=== PATIENT | male | born 1995 | race African-American/Black ===

== ENCOUNTER 2017-04-22 15:38 | Inpatient (IN) | payer SELFPAY ==
[~2017-04-22] VITALS: Ht 177.8 cm; Wt 68.5 kg
[2017-04-22 15:42] VITALS: BP 158/101; PULSE 144; RESP 26; TEMP 98.8; O2SAT 99
[2017-04-22] MEDS ORDERED: SODIUM CHLOR 0.9% 1000 ML INJ 1,000 ML IV ONE (16:25)
--- NOTE | 2017-04-22 16:28 | PD ---
HPI Chief Complaint: Flank/Kidney Pain Time Seen by Provider: 16:25 Travel History International Travel<30 days: No Contact w/Intl Traveler<30days: No Traveled to known affect area: No History of Present Illness HPI 21-year-old male presents for evaluation of right flank pain, nausea and vomiting. Symptoms started this morning. He reports sharp pain in his right flank which is constant, associated with multiple episodes of nonbloody emesis. He reports a history of kidney stone in the past requiring lithotripsy and this feels similar. Denies dysuria, hematuria, testicular or scrotal pain, chest pain or shortness of breath, fevers. He reports that he is from [place], currently here on vacation. He is no other complaints at this time. PENDING SALE TO [facility] Social History Alcohol Use: No Tobacco Use: No Allergies-Medications (Allergen,Severity, Reaction): Coded Allergies: No Known Allergies (Verified Allergy, Unknown, 04/22/17) Reported Meds & Prescriptions Reported Meds & Active Scripts Active No Active Prescriptions or Reported Medications Review of Systems Except as stated in HPI: all other systems reviewed are Neg Physical Exam Narrative GENERAL: Well-developed well-nourished male who is actively vomiting. He appears uncomfortable. SKIN: Warm and dry. HEAD: Atraumatic. Normocephalic. EYES: Pupils equal and round. No scleral icterus. No injection or drainage. ENT: No nasal bleeding or discharge. Mucous membranes pink and moist. NECK: Trachea midline. No JVD. CARDIOVASCULAR: Regular rate and rhythm. No murmur appreciated. RESPIRATORY: No accessory muscle use. Clear to auscultation. Breath sounds equal bilaterally. GASTROINTESTINAL: Abdomen soft, mild generalized tenderness to palpation. Right CVA tenderness is present. MUSCULOSKELETAL: No obvious deformities. No clubbing. No cyanosis. No edema. NEUROLOGICAL: Awake and alert. No obvious cranial nerve deficits. Motor grossly within normal limits. Normal speech. PSYCHIATRIC: Appropriate mood and affect; insight and judgment normal. Data Data Last Documented VS Vital Signs Date Time Temp Pulse Resp B/P (MAP) Pulse Ox O2 Delivery O2 Flow Rate FiO2 04/22/17 16:52 62 16 99 04/22/17 15:42 98.8 Orders Orders Urinalysis - C+S If Indicated (04/22/17 15:50) Complete Blood Count With Diff (04/22/17 16:25) Comprehensive Metabolic Panel (04/22/17 16:25) Ct Abd/Pel W/O Iv Contrast (04/22/17 16:25) Iv Access Insert/Monitor (04/22/17 16:25) Ketorolac Inj (Toradol Inj) (04/22/17 16:30) Morphine Inj (Morphine Inj) (04/22/17 16:30) Ondansetron Inj (Zofran Inj) (04/22/17 16:30) Sodium Chlor 0.9% 1000 Ml Inj (Ns 1000 M (04/22/17 16:25) Ecg Monitoring (04/22/17 16:25) Lipase (04/22/17 16:25) Urine Culture (04/22/17 15:50) Ceftriaxone Inj (Rocephin Inj) (04/22/17 17:45) Admit Order (Ed Use Only) (04/22/17 18:29) Labs Laboratory Tests Test 04/22/17 15:50 04/22/17 16:29 Urine Color YELLOW Urine Turbidity CLOUDY Urine pH 8.0 Urine Specific [place] 1.017 Urine Protein 100 mg/dL Urine Glucose (UA) NEG mg/dL Urine Ketones NEG mg/dL Urine Occult Blood MOD Urine Nitrite NEG Urine Bilirubin NEG Urine Urobilinogen LESS THAN 2.0 MG/DL Urine Leukocyte Esterase LARGE Urine RBC /hpf Urine WBC 91 /hpf Urine Amorphous Sediment RARE Microscopic Urinalysis Comment CULTURE INDICATED White Blood Count 19.7 TH/MM3 Red Blood Count 5.63 MIL/MM3 Hemoglobin 17.3 GM/DL Hematocrit 51.4 % Mean Corpuscular Volume 91.3 FL Mean Corpuscular Hemoglobin 30.7 PG Mean Corpuscular Hemoglobin Concent 33.7 % Red Cell Distribution Width 13.4 % Platelet Count 220 TH/MM3 Mean Platelet Volume 10.9 FL Neutrophils (%) (Auto) 88.4 % Lymphocytes (%) (Auto) 6.3 % Monocytes (%) (Auto) 5.0 % Eosinophils (%) (Auto) 0.1 % Basophils (%) (Auto) 0.2 % Neutrophils # (Auto) 17.4 TH/MM3 Lymphocytes # (Auto) 1.2 TH/MM3 Monocytes # (Auto) 1.0 TH/MM3 Eosinophils # (Auto) 0.0 TH/MM3 Basophils # (Auto) 0.0 TH/MM3 CBC Comment DIFF FINAL Differential Comment Blood Urea Nitrogen 8 MG/DL Creatinine 1.17 MG/DL Random Glucose 146 MG/DL Total Protein 8.2 GM/DL Albumin 4.8 GM/DL Calcium Level 9.4 MG/DL Alkaline Phosphatase 73 U/L Aspartate Amino Transf (AST/SGOT) 17 U/L Alanine Aminotransferase (ALT/SGPT) 20 U/L Total Bilirubin 0.4 MG/DL Sodium Level 139 MEQ/L Potassium Level 4.2 MEQ/L Chloride Level 101 MEQ/L Carbon Dioxide Level 29.5 MEQ/L Anion Gap 9 MEQ/L Estimat Glomerular Filtration Rate 79 ML/MIN Lipase 65 U/L [facility] Medical Decision Making Medical Screen Exam Complete: Yes Emergency Medical Condition: Yes Medical Record Reviewed: Yes Differential Diagnosis Ureteral stone, hydronephrosis, appendicitis, testicular torsion, cholecystitis , muscle spasm Narrative Course CONCLUSION: 1. Large right renal staghorn calculus with moderate hydronephrosis. 2. Additional calyceal calculi in lower pole right kidney. 3. 3 mm left mid pole calculus. 4. No significant abnormality. CBC reveals leukocytosis with a WBC count of 19, urinalysis reveals large leukocytes, hematuria, culture pending, IV Rocephin initiated. The patient was given IV fluids, Toradol, Zofran, morphine and on repeat examination his pain is improved but still a 6 out of 10. The urologist on- call will be consulted. Discussed with Dr. Mendoza who would like the patient admitted to medicine, urology consult, IV antibiotics. Diagnosis Primary Impression: Kidney stone Additional Impression: Pyelonephritis Admitting Information Admitting Physician Requests: Admit Scripts No Active Prescriptions or Reported Meds Jaya Mckeon Apr 22, 2017 16:28
[2017-04-22] MEDS ORDERED: KETOROLAC TROMETHAMINE 30 MG/ML (IVP) VIAL IV PUSH ONE (16:30)
[2017-04-22] MEDS ORDERED: ONDANSETRON HCL 4 MG/2 ML VIAL IV PUSH ONE (16:30)
[2017-04-22] MEDS ORDERED: MORPHINE SULFATE 4 MG/ML INJ IV PUSH ONE (16:30)
[2017-04-22 16:52] VITALS: PULSE 62; RESP 16; O2SAT 99
[2017-04-22 17:16] LABS: AUTOMATED NEUTROPHIL # 17.4 TH/MM3 (1.8-7.7); BASOPHIL % 0.2 % (0.0-2.0); EOSINOPHIL % 0.1 % (0.0-4.0); HEMATOCRIT 51.4 % (39.0-51.0); HEMOGLOBIN 17.3 GM/DL (13.0-17.0); LYMPH % 6.3 % (9.0-44.0); LYMPHOCYTE # 1.2 TH/MM3 (1.0-4.8); MEAN CELL VOLUME 91.3 FL (80.0-100.0); MEAN CORPUSCULAR HEMOGLOBIN 30.7 PG (27.0-34.0); MEAN CORPUSCULAR HGB CONC 33.7 % (32.0-36.0); MEAN PLATELET VOLUME 10.9 FL (7.0-11.0); NEUT % 88.4 % (16.0-70.0); PLATELET COUNT 220 TH/MM3 (150-450); RED BLOOD COUNT 5.63 MIL/MM3 (4.50-5.90); RED CELL DISTRIBUTION WIDTH 13.4 % (11.6-17.2); WHITE BLOOD COUNT 19.7 TH/MM3 (4.0-11.0)
[2017-04-22 17:21] LABS: AMORPHOUS SEDIMENT, URINE RARE; BILIRUBIN, URINE NEG (NEG); BLOOD, URINE MOD (NEG); GLUCOSE,URINE NEG (NEG); KETONE, URINE NEG (NEG); NITRITE,URINE NEG (NEG); URINE COLOR YELLOW (YELLW/STRAW); URINE LEUKOCYTE ESTERASE LARGE (NEG)
[2017-04-22 17:28] LABS: ALBUMIN 4.8 GM/DL (3.4-5.0); BICARBONATE 29.5 MEQ/L (21.0-32.0); BLOOD UREA NITROGEN 8 MG/DL (7-18); CALCIUM 9.4 MG/DL (8.5-10.1); CHLORIDE 101 MEQ/L (98-107); CREATININE 1.17 MG/DL (0.60-1.30); GLOMERULAR FILTRATION RATE 79 ML/MIN (>89); GLUCOSE,RANDOM 146 MG/DL (74-106); SODIUM (NA) 139 MEQ/L (136-145)
[2017-04-22 17:29] LABS: ALT (GPT) 20 U/L (9-52); AST (GOT) 17 U/L (15-39)
[2017-04-22 17:31] LABS: ALKALINE PHOSPHATASE 73 U/L (45-117); TOTAL BILIRUBIN ADULT 0.4 MG/DL (0.2-1.0); TOTAL PROTEIN 8.2 GM/DL (6.4-8.2)
--- NOTE | 2017-04-22 17:39 | RADRPT ---
EXAM DATE/TIME: 04/22/2017 17:11 [place] COMPARISON: No previous studies available for comparison. INDICATIONS : Patient complains of right sided flank pain. ORAL CONTRAST: No oral contrast ingested. RADIATION DOSE: 6.64 CTDIvol (mGy) MEDICAL HISTORY : None SURGICAL HISTORY : None. ENCOUNTER: Initial ACUITY: 1 day PAIN SCALE: 10/10 LOCATION: Right flank TECHNIQUE: Volumetric scanning of the abdomen and pelvis was performed. Using automated exposure control and ad justment of the mA and/or kV according to patient size, radiation dose was kept as low as reasonably achievable to obtain optimal diagnostic quality images. DICOM format image data is available electro nically for review and comparison. FINDINGS: LOWER LUNGS: The visualized lower lungs are clear. LIVER: Homogeneous density without lesion. There is no dilation of the biliary tree. No calcified gallston es. SPLEEN: Normal size without lesion. PANCREAS: Within normal limits. KIDNEYS: A large calcified staghorn calculus is identified extending from the midpole to the inferior pole of the right kidney. The upper collecting system and renal pelvis are distended. The staghorn measures 2 .2 x 5.7 cm in size. Several additional calculi are seen in the lower pole right kidney the largest m easuring 10 mm. A 3 mm calculus is identified in the midpole of left kidney. Left renal collecting system is nor mal appearance ADRENAL GLANDS: Within normal limits. VASCULAR: There is no aortic aneurysm. BOWEL/MESENTERY: The stomach, small bowel, and colon demonstrate no acute abnormality. There is no free intraperitone al air or fluid. ABDOMINAL WALL: Within normal limits. RETROPERITONEUM: There is no lymphadenopathy. BLADDER: No wall thickening or mass. REPRODUCTIVE: Within normal limits. INGUINAL: There is no lymphadenopathy or hernia. MUSCULOSKELETAL: Within normal limits for patient age. CONCLUSION: 1. Large right renal staghorn calculus with moderate hydronephrosis. 2. Additional calyceal calculi in lower pole right kidney. 3. 3 mm left mid pole calculus. 4. No significant abnormality. Samson Gautam MD on April 22, 2017 at 17:33 Board Certified Radiologist. This report was verified electronically.
[2017-04-22] MEDS ORDERED: cefTRIAXone INJ 1,000 MG in SODIUM CHLORIDE 0.9% INJ 100 ML IV ONE (17:45)
[2017-04-22] MEDS: SODIUM CHLOR 0.9% 1000 ML INJ 1,000 ML IV SCH (18:33)
[2017-04-22] MEDS ORDERED: SODIUM CHLORIDE 0.9% FLUSH 10 ML FLUSH IV FLUSH PRN (18:45)
[2017-04-22] MEDS ORDERED: ACETAMINOPHEN 325 MG TAB PO PRN (18:45)
[2017-04-22] MEDS ORDERED: oxyCODONE/ACETAMINOPHEN 5 MG/325 MG TAB PO PRN (18:45)
[2017-04-22 20:00] VITALS: BP 163/94; PULSE 61; RESP 18; TEMP 98.2; O2SAT 99
[2017-04-22] MEDS: MORPHINE SULFATE 4 MG/ML INJ IV PUSH PRN (20:18)
[2017-04-22] MEDS: ONDANSETRON HCL 4 MG/2 ML VIAL IVP PRN (20:18)
[2017-04-22] MEDS: SODIUM CHLORIDE 0.9% FLUSH 10 ML FLUSH IV FLUSH SCH (20:18)
[2017-04-22] MEDS: oxyCODONE/ACETAMINOPHEN 10 MG/325 MG TAB PO PRN (23:15)
--- NOTE | 2017-04-22 23:23 | HHI.HP ---
HPI Service [facility] Primary Care Physician No Primary Care Physician Admission Diagnosis kidney stone, hydronephrosis, pyelonephritis Diagnoses: Chief Complaint: right flank pain Travel History International Travel<30 Days: No Contact w/Intl Traveler <30 Da: No Traveled to Known Affected Are: No History of Present Illness 21 y/o male with a history of kidney stones presented to the ED with complaints of right flank pain. He states he woke up this morning and tried to urination and he was only able to dribble and when he tried to force it he had severe left flank pain. He states it is an intermittent, sharp, 10/10 pain, worse with palpation, but relieved with pain medication, with associated nausea. He has had kidney stones in the past at age 8 and 19 that failed lithotripsy and required ureteroscopy. He states he knows he does not drink enough fluids. He denies any chest pain, sob, fever or chills. He is currently here on vacation from [place]. Review of Systems Except as stated in HPI: all other systems reviewed are Neg Past Family Social History Past Medical History Kidney stones Past Surgical History Lithotripsy Ureteroscopy for stone removal Reported Medications Reported Meds & Active Scripts Active No Active Prescriptions or Reported Medications Allergies: Coded Allergies: No Known Allergies (Verified Allergy, Unknown, 04/22/17) Active Ordered Medications Current Medications Medications (Trade) Dose Ordered Sig/Teddy Route Start Time Stop Time Status Last Admin Sodium Chloride 1,000 ml @ 100 mls/hr Q10H IV 04/22/17 18:33 04/22/17 18:33 (NS Flush) 2 ml UNSCH PRN IV FLUSH 04/22/17 18:45 (NS Flush) 2 ml BID IV FLUSH 04/22/17 21:00 04/22/17 20:18 (Tylenol) 650 mg Q4H PRN PO 04/22/17 18:45 (Zofran Inj) 4 mg Q6H PRN IVP 04/22/17 18:45 04/22/17 20:18 (Percocet 5-325 Mg) 1 tab Q6H PRN PO 04/22/17 18:45 (Percocet 10-325 Mg) 1 tab Q6H PRN PO 04/22/17 18:45 04/22/17 23:15 (Morphine Inj) 4 mg Q3H PRN IV PUSH 04/22/17 18:45 04/23/17 00:22 Ceftriaxone Sodium 1000 mg/ Sodium Chloride 100 ml @ 200 mls/hr Q24H IV 04/23/17 18:00 Family History Patient denies any family history Social History Tobacco use: Rarely Alcohol use: Denies Illicit drug use: Marijuana Physical Exam Vital Signs Vital Signs Date Time Temp Pulse Resp B/P (MAP) Pulse Ox O2 Delivery O2 Flow Rate FiO2 04/22/17 20:23 16 04/22/17 20:00 98.2 61 18 163/94 (117) 99 04/22/17 16:52 62 16 99 04/22/17 15:42 98.8 144 26 158/101 (120) 99 Physical Exam GENERAL: This is a well-nourished, well-developed patient, in no apparent distress. SKIN: No rashes, ecchymoses or lesions. Cool and dry. HEAD: Atraumatic. Normocephalic. No temporal or scalp tenderness. EYES: Pupils equal round and reactive. Extraocular motions intact. ENT: Nose without bleeding, purulent drainage or septal hematoma. NECK: Trachea midline. No JVD or lymphadenopathy. CARDIOVASCULAR: Regular rate and rhythm without murmurs, gallops, or rubs. RESPIRATORY: Clear to auscultation. Breath sounds equal bilaterally. No wheezes , rales, or rhonchi. GASTROINTESTINAL: Abdomen soft, Right flank tenderness, nondistended. CVA tenderness MUSCULOSKELETAL: Extremities without clubbing, cyanosis, or edema. No joint tenderness, effusion, or edema noted. No calf tenderness. NEUROLOGICAL: Awake and alert. Motor and sensory grossly within normal limits. Normal speech. Laboratory Laboratory Tests Test 04/22/17 15:50 04/22/17 16:29 Urine Color YELLOW Urine Turbidity CLOUDY Urine pH 8.0 Urine Specific [place] 1.017 Urine Protein 100 Urine Glucose (UA) NEG Urine Ketones NEG Urine Occult Blood MOD Urine Nitrite NEG Urine Bilirubin NEG Urine Urobilinogen LESS THAN 2.0 Urine Leukocyte Esterase LARGE Urine RBC Urine WBC 91 Urine Amorphous Sediment RARE Microscopic Urinalysis Comment CULTURE INDICATED White Blood Count 19.7 Red Blood Count 5.63 Hemoglobin 17.3 Hematocrit 51.4 Mean Corpuscular Volume 91.3 Mean Corpuscular Hemoglobin 30.7 Mean Corpuscular Hemoglobin Concent 33.7 Red Cell Distribution Width 13.4 Platelet Count 220 Mean Platelet Volume 10.9 Neutrophils (%) (Auto) 88.4 Lymphocytes (%) (Auto) 6.3 Monocytes (%) (Auto) 5.0 Eosinophils (%) (Auto) 0.1 Basophils (%) (Auto) 0.2 Neutrophils # (Auto) 17.4 Lymphocytes # (Auto) 1.2 Monocytes # (Auto) 1.0 Eosinophils # (Auto) 0.0 Basophils # (Auto) 0.0 CBC Comment DIFF FINAL Differential Comment Blood Urea Nitrogen 8 Creatinine 1.17 Random Glucose 146 Total Protein 8.2 Albumin 4.8 Calcium Level 9.4 Alkaline Phosphatase 73 Aspartate Amino Transf (AST/SGOT) 17 Alanine Aminotransferase (ALT/SGPT) 20 Total Bilirubin 0.4 Sodium Level 139 Potassium Level 4.2 Chloride Level 101 Carbon Dioxide Level 29.5 Anion Gap 9 Estimat Glomerular Filtration Rate 79 Lipase 65 Date/Time Source Procedure Growth Status 04/22/17 15:50 Urine Clean Catch Urine Culture Pending Received Result Diagram: 04/22/17 1629 04/22/17 1629 Imaging Last Impressions Abdomen/Pelvis CT 04/22/17 162 Signed Impressions: Service Date/Time: April 17:11 - CONCLUSION: 1. Large right renal staghorn calculus with moderate hydronephrosis. 2. Additional calyceal calculi in lower pole right kidney. 3. 3 mm left mid pole calculus. 4. No significant abnormality. Samson Gautam MD Caprini VTE Risk Assessment Caprini VTE Risk Assessment: No/Low Risk (score <= 1) Caprini Risk Assessment Model Point Value = 1 Point Value = 2 Point Value = 3 Point Value = 5 Age 41-60 Minor surgery BMI > 25 kg/m2 Swollen legs Varicose veins or History of unexplained or recurrent spontaneous Oral contraceptives or hormone replacement Sepsis (< 1 month) Serious lung disease, including pneumonia (< 1 month) Abnormal pulmonary function Acute myocardial infarction Congestive heart failure (< 1 month) History of inflammatory bowel disease Medical patient at bed rest Age 61-74 Arthroscopic surgery Major open surgery (> 45 min) Laparoscopic surgery (> 45 min) Malignancy Confined to bed (> 72 hours) Immobilizing plaster cast Central venous access Age >= 75 History of VTE Family history of VTE Factor V Leiden Prothrombin [id number] Lupus anticoagulant Anticardiolipin antibodies Elevated serum homocysteine Heparin-induced thrombocytopenia Other congenital or acquired thrombophilia Stroke (< 1 month) Elective arthroplasty Hip, pelvis, or leg fracture Acute spinal cord injury (< 1 month) Prophylaxis Regimen Total Risk Factor Score Risk Level Prophylaxis Regimen 0-1 Low Early ambulation 2 Moderate Order ONE of the following: *Sequential Compression Device (SCD) *Heparin 5000 units SQ BID 3-4 Higher Order ONE of the following medications: *Heparin 5000 units SQ TID *Enoxaparin/Lovenox 40 mg SQ daily (WT < 150 kg, CrCl > 30 mL/min) *Enoxaparin/Lovenox 30 mg SQ daily (WT < 150 kg, CrCl > 10-29 mL/min) *Enoxaparin/Lovenox 30 mg SQ BID (WT < 150 kg, CrCl > 30 mL/min) AND/OR *Sequential Compression Device (SCD) 5 or more Highest Order ONE of the following medications: *Heparin 5000 units SQ TID (Preferred with Epidurals) *Enoxaparin/Lovenox 40 mg SQ daily (WT < 150 kg, CrCl > 30 mL/min) *Enoxaparin/Lovenox 30 mg SQ daily (WT < 150 kg, CrCl > 10-29 mL/min) *Enoxaparin/Lovenox 30 mg SQ BID (WT < 150 kg, CrCl > 30 mL/min) AND *Sequential Compression Device (SCD) Assessment and Plan Problem List: (1) Staghorn calculus ICD Code: N20.0 - Calculus of kidney Status: Acute (2) Pyelonephritis ICD Code: N12 - Tubulo-interstitial nephritis, not specified as acute or chronic Status: Acute (3) Hydronephrosis ICD Code: N13.30 - Unspecified hydronephrosis Status: Acute Assessment and Plan 21 y/o male with a history of kidney stones presented to the ED with complaints of right flank pain. Staghorn calculus with hydronephrosis Abdomen CT reviewed and shows a large right renal staghorn calculus with moderate hydronephrosis. 3mm left mid pole calculus. -IVF -Pain management with IV morphine and PO Percocet -Consult urology for recommendations Pyelonephritis, wbc 19.7 UA shows large leukocyte esterase, moderate blood -Rocephin IV -Urine culture pending DVT prophylaxis: SCDs Discussed Condition With Patient and RN Physician Certification 2 Midnight Certification Type: Admission for Inpatient Services Order for Inpatient Services The services are ordered in accordance with Medicare regulations or non- Medicare payer requirements, as applicable. In the case of services not specified as inpatient-only, they are appropriately provided as inpatient services in accordance with the 2-midnight benchmark. Estimated LOS (days): 2 days is the estimated time the patient will need to remain in the hospital, assuming treatment plan goals are met and no additional complications. Post-Hospital Plan: Home Problem Qualifiers (1) Hydronephrosis: Qualified Codes: N13.2 - Hydronephrosis with renal and ureteral calculous obstruction Debby Durant Apr 22, 2017 23:23
[2017-04-23] VITALS: BP 137/72; PULSE 88; RESP 18; TEMP 98.5; O2SAT 97
[2017-04-23] MEDS: MORPHINE SULFATE 4 MG/ML INJ IV PUSH PRN ×7 (00:22→19:35)
[2017-04-23] MEDS: ONDANSETRON HCL 4 MG/2 ML VIAL IVP PRN ×4 (02:05→19:34)
[2017-04-23] MEDS: SODIUM CHLOR 0.9% 1000 ML INJ 1,000 ML IV SCH ×3 (03:44→19:35)
[2017-04-23 04:00] VITALS: BP 131/82; PULSE 57; RESP 18; TEMP 97.9; O2SAT 97
[2017-04-23 08:00] VITALS: BP 129/81; PULSE 81; RESP 22; TEMP 97.8; O2SAT 98
[2017-04-23 08:05] LABS: AUTOMATED NEUTROPHIL # 10.1 TH/MM3 (1.8-7.7); BASOPHIL % 0.2 % (0.0-2.0); EOSINOPHIL % 0.3 % (0.0-4.0); HEMATOCRIT 45.4 % (39.0-51.0); HEMOGLOBIN 15.7 GM/DL (13.0-17.0); LYMPH % 13.8 % (9.0-44.0); LYMPHOCYTE # 1.9 TH/MM3 (1.0-4.8); MEAN CELL VOLUME 91.5 FL (80.0-100.0); MEAN CORPUSCULAR HEMOGLOBIN 31.6 PG (27.0-34.0); MEAN CORPUSCULAR HGB CONC 34.6 % (32.0-36.0); MEAN PLATELET VOLUME 10.4 FL (7.0-11.0); MONO % 12.7 % (0.0-8.0); MONOCYTE # 1.8 TH/MM3 (0-0.9); PLATELET COUNT 182 TH/MM3 (150-450); RED BLOOD COUNT 4.97 MIL/MM3 (4.50-5.90); WHITE BLOOD COUNT 13.9 TH/MM3 (4.0-11.0)
[2017-04-23 08:29] LABS: BICARBONATE 27.6 MEQ/L (21.0-32.0); CALCIUM 8.8 MG/DL (8.5-10.1); CREATININE 0.87 MG/DL (0.60-1.30)
[2017-04-23] MEDS: SODIUM CHLORIDE 0.9% FLUSH 10 ML FLUSH IV FLUSH SCH ×2 (09:00→19:35)
[2017-04-23] MEDS: oxyCODONE/ACETAMINOPHEN 10 MG/325 MG TAB PO PRN ×3 (10:29→23:07)
--- NOTE | 2017-04-23 10:59 | HHI.PR ---
Subjective Remarks Follow-up sepsis/pyelonephritis/nephrolithiasis 04/23/17-patient seen and examined, continued to complain of right flank pain, emesis Objective Vitals Vital Signs Date Time Temp Pulse Resp B/P (MAP) Pulse Ox O2 Delivery O2 Flow Rate FiO2 04/23/17 08:00 97.8 81 22 129/81 (97) 98 04/23/17 06:45 18 04/23/17 04:00 97.9 57 18 131/82 (98) 97 04/23/17 00:00 98.5 88 18 137/72 (93) 97 04/22/17 20:00 98.2 61 18 163/94 (117) 99 04/22/17 16:52 62 16 99 04/22/17 15:42 98.8 144 26 158/101 (120) 99 I/O 04/22/17 04/22/17 04/22/17 04/23/17 04/23/17 04/23/17 07:00 15:00 23:00 07:00 15:00 23:00 Intake Total 1100 ml 1000 ml Balance 1100 ml 1000 ml Intake IV Total 1100 ml 1000 ml # Voids 2 Result Diagram: 04/23/17 0720 04/23/17 0720 Imaging Last Impressions Abdomen/Pelvis CT 04/22/17 1625 Signed Impressions: Service Date/Time: April 17:11 - CONCLUSION: 1. Large right renal staghorn calculus with moderate hydronephrosis. 2. Additional calyceal calculi in lower pole right kidney. 3. 3 mm left mid pole calculus. 4. No significant abnormality. Samson Gautam MD Objective Remarks GENERAL: NAD SKIN: Warm and dry. HEAD: Normocephalic. EYES: No scleral icterus. No injection or drainage. NECK: Supple, trachea midline. No JVD or lymphadenopathy. CARDIOVASCULAR: Regular rate and rhythm without murmurs, gallops, or rubs. RESPIRATORY: Breath sounds equal bilaterally. No accessory muscle use. GASTROINTESTINAL: Abdomen soft, non-tender, nondistended. MUSCULOSKELETAL: No cyanosis, or edema. BACK: Nontender without obvious deformity. +Right sided CVA tenderness. A/P Problem List: (1) Staghorn calculus ICD Code: N20.0 - Calculus of kidney Status: Acute (2) Pyelonephritis ICD Code: N12 - Tubulo-interstitial nephritis, not specified as acute or chronic Status: Acute (3) Hydronephrosis ICD Code: N13.30 - Unspecified hydronephrosis Status: Acute (4) Sepsis ICD Code: A41.9 - Sepsis, unspecified organism Assessment and Plan 21-year-old man with Staghorn calculus with hydronephrosis Abdomen CT reviewed and shows a large right renal staghorn calculus with moderate hydronephrosis. 3mm left mid pole calculus. -Increase IVF rate to 150ml/hr -Pain management with IV morphine and PO Percocet -Urology consultation pending Sepsis Pyelonephritis -Rocephin IV -Urine culture pending -Check Lactic acid Hypokalemia Give potassium 60 mEq 1 now and monitor BMP DVT prophylaxis: SCDs Problem Qualifiers (1) Hydronephrosis: Qualified Codes: N13.2 - Hydronephrosis with renal and ureteral calculous obstruction Camden Guajardo MD Apr 23, 2017 10:59
[2017-04-23 12:00] VITALS: BP 143/70; PULSE 67; RESP 20; TEMP 98; O2SAT 97
[2017-04-23] MEDS ORDERED: POTASSIUM CHLORIDE 10 MEQ CONTROLLED RELEASE TAB PO ONE (12:00)
--- NOTE | 2017-04-23 14:50 | PD.CONS ---
HPI Service Urology Consult Requested By Jerel Mckeon Reason for Consult Staghorn calculus right kidney Primary Care Physician No Primary Care Physician Diagnosis: (1) Staghorn calculus ICD Code: N20.0 - Calculus of kidney (2) Pyelonephritis ICD Code: N12 - Tubulo-interstitial nephritis, not specified as acute or chronic (3) Hydronephrosis ICD Code: N13.30 - Unspecified hydronephrosis (4) Sepsis ICD Code: A41.9 - Sepsis, unspecified organism History of Present Illness 21-year-old male with history nephrolithiasis who presented to emergency room with complaints of right flank pain and nausea. Workup included a CT scan stone protocol that demonstrated a large staghorn calculus involving the right kidney with mild hydronephrosis. There was an additional small stone within the lower pole the right kidney and a small stone involving the left kidney. No ureteral stones were seen. Patient was treated in the past for nephrolithiasis with both shockwave lithotripsy and ureteroscopy. Patient has been afebrile. He was noted to have elevation in white blood cell count during preliminary blood work. Urinalysis was also consistent with infection. Patient was admitted and started on intravenous antibiotics and analgesic support. At the time of consultation, the patient was feeling remarkably better with minimal pain. His white blood cell count had been trending downwards. I reviewed the actual CT scan images. Review of Systems Constitutional: DENIES: Fever, Chills Cardiovascular: DENIES: Chest pain Gastrointestinal: DENIES: Abdominal pain Genitourinary: DENIES: Hematuria Musculoskeletal: COMPLAINS OF: Back pain (Severe left flank pain upon initial presentation to ER) Except as stated in HPI: all other systems reviewed are Neg Past Family Social History Past Medical History Recurrent nephrolithiasis Past Surgical History Status post shockwave lithotripsy Status post ureteroscopy Reported Medications None Allergies: Coded Allergies: No Known Allergies (Verified Allergy, Unknown, 04/22/17) Active Ordered Medications Refer to EMR Family History Reviewed and noncontributory Social History Rare tobacco use Denies alcohol use Physical Exam Vital Signs Date Time Temp Pulse Resp B/P (MAP) Pulse Ox O2 Delivery O2 Flow Rate FiO2 04/23/17 12:00 98.0 67 20 143/70 (94) 97 04/23/17 08:00 97.8 81 22 129/81 (97) 98 04/23/17 06:45 18 04/23/17 04:00 97.9 57 18 131/82 (98) 97 04/23/17 00:00 98.5 88 18 137/72 (93) 97 04/22/17 20:00 98.2 61 18 163/94 (117) 99 04/22/17 16:52 62 16 99 04/22/17 15:42 98.8 144 26 158/101 (120) 99 Physical Exam GENERAL: This is a well-nourished, well-developed patient, in no apparent distress. SKIN: No rashes, ecchymoses or lesions. Cool and dry. HEAD: Atraumatic. Normocephalic. No temporal or scalp tenderness. EYES: Pupils equal round and reactive. Extraocular motions intact. No scleral icterus. No injection or drainage. ENT: Nose without bleeding, purulent drainage or septal hematoma. Throat without erythema, tonsillar hypertrophy or exudate. Uvula midline. Airway patent. NECK: Trachea midline. No JVD or lymphadenopathy. Supple, nontender, no meningeal signs. CARDIOVASCULAR: Regular rate and rhythm without murmurs, gallops, or rubs. RESPIRATORY: Clear to auscultation. Breath sounds equal bilaterally. No wheezes , rales, or rhonchi. GASTROINTESTINAL: Abdomen soft, non-tender, nondistended. No hepato-splenomegaly , or palpable masses. No guarding. GENITOURINARY: No CVA tenderness MUSCULOSKELETAL: Extremities without clubbing, cyanosis, or edema. No joint tenderness, effusion, or edema noted. No calf tenderness. Negative Homans sign bilaterally. NEUROLOGICAL: Awake and alert. Cranial nerves II through XII intact. Motor and sensory grossly within normal limits. Five out of 5 muscle strength in all muscle groups. Normal speech. Lab results reviewed: Yes Laboratory Tests Test 04/22/17 15:50 04/22/17 16:29 04/23/17 07:20 04/23/17 12:57 Urine Color YELLOW Urine Turbidity CLOUDY Urine pH 8.0 Urine Specific Galliano 1.017 Urine Protein 100 Urine Glucose (UA) NEG Urine Ketones NEG Urine Occult Blood MOD Urine Nitrite NEG Urine Bilirubin NEG Urine Urobilinogen LESS THAN 2.0 Urine Leukocyte Esterase LARGE Urine RBC Urine WBC 91 Urine Amorphous Sediment RARE Microscopic Urinalysis Comment CULTURE INDICATED White Blood Count 19.7 13.9 Red Blood Count 5.63 4.97 Hemoglobin 17.3 15.7 Hematocrit 51.4 45.4 Mean Corpuscular Volume 91.3 91.5 Mean Corpuscular Hemoglobin 30.7 31.6 Mean Corpuscular Hemoglobin Concent 33.7 34.6 Red Cell Distribution Width 13.4 13.0 Platelet Count 220 182 Mean Platelet Volume 10.9 10.4 Neutrophils (%) (Auto) 88.4 73.0 Lymphocytes (%) (Auto) 6.3 13.8 Monocytes (%) (Auto) 5.0 12.7 Eosinophils (%) (Auto) 0.1 0.3 Basophils (%) (Auto) 0.2 0.2 Neutrophils # (Auto) 17.4 10.1 Lymphocytes # (Auto) 1.2 1.9 Monocytes # (Auto) 1.0 1.8 Eosinophils # (Auto) 0.0 0.0 Basophils # (Auto) 0.0 0.0 CBC Comment DIFF FINAL DIFF FINAL Differential Comment Blood Urea Nitrogen 8 6 Creatinine 1.17 0.87 Random Glucose 146 103 Total Protein 8.2 Albumin 4.8 Calcium Level 9.4 8.8 Alkaline Phosphatase 73 Aspartate Amino Transf (AST/SGOT) 17 Alanine Aminotransferase (ALT/SGPT) 20 Total Bilirubin 0.4 Sodium Level 139 137 Potassium Level 4.2 3.4 Chloride Level 101 102 Carbon Dioxide Level 29.5 27.6 Anion Gap 9 7 Estimat Glomerular Filtration Rate 79 136 Lipase 65 Lactic Acid Level 2.0 Date/Time Source Procedure Growth Status 04/22/17 15:50 Urine Clean Catch Urine Culture - Preliminary RESULTS PENDING Resulted Result Diagram: 04/23/17 0720 04/23/17 0720 Personally reviewed images: Yes Imaging Last Impressions Abdomen/Pelvis CT 04/22/17 0220 Signed Impressions: Service Date/Time: April 17:11 - CONCLUSION: 1. Large right renal staghorn calculus with moderate hydronephrosis. 2. Additional calyceal calculi in lower pole right kidney. 3. 3 mm left mid pole calculus. 4. No significant abnormality. Samson Gautam MD Assessment and Plan Assessment and Plan Urologic impression: 1. Right staghorn renal calculus causing mild hydronephrosis 2. Right flank pain related to urinary tract infection with a large stone a likely nidus for the infection 3. Additional small right lower pole calculus and a small left renal calculus midpole Recommendations: 1. Agree with present antibiotic therapy 2. May switch over to oral antibiotics for at least an additional 2 weeks at time of hospital discharge 3. Continue with analgesic support 4. May discharge home from GI perspective when pain managed with oral meds 5. Office follow-up within the next 1-2 weeks to make arrangements for placement of left nephrostomy tube and subsequent left percutaneous nephrolithotomy [phone]. Problem Qualifiers (1) Hydronephrosis: Qualified Codes: N13.2 - Hydronephrosis with renal and ureteral calculous obstruction Олег Mendoza MD Apr 23, 2017 14:50
[2017-04-23 16:00] VITALS: BP 136/86; PULSE 83; RESP 20; TEMP 98.1; O2SAT 97
[2017-04-23] MEDS ORDERED: cefTRIAXone INJ 1,000 MG in SODIUM CHLORIDE 0.9% INJ 100 ML IV SCH (18:00)
[2017-04-23] MEDS: DOCUSATE SODIUM 50 MG/SENNA 8.6 MG TAB PO SCH (19:34)
[2017-04-23 20:00] VITALS: BP 135/94; PULSE 74; RESP 18; TEMP 98; O2SAT 97
[2017-04-24] VITALS: BP 143/99; PULSE 76; RESP 17; TEMP 98.2; O2SAT 99
[2017-04-24] MEDS: MORPHINE SULFATE 4 MG/ML INJ IV PUSH PRN ×2 (00:51→03:53)
[2017-04-24] MEDS: SODIUM CHLOR 0.9% 1000 ML INJ 1,000 ML IV SCH ×2 (00:51→09:20)
[2017-04-24 04:00] VITALS: BP 142/88; PULSE 83; RESP 17; TEMP 97.9; O2SAT 98
[2017-04-24] MEDS: ONDANSETRON HCL 4 MG/2 ML VIAL IVP PRN (04:15)
[2017-04-24] MEDS: oxyCODONE/ACETAMINOPHEN 10 MG/325 MG TAB PO PRN (05:51)
[2017-04-24 05:58] LABS: AUTOMATED NEUTROPHIL # 5.3 TH/MM3 (1.8-7.7); BASOPHIL # 0.1 TH/MM3 (0-0.2); BASOPHIL % 0.6 % (0.0-2.0); EOSINOPHIL # 0.2 TH/MM3 (0-0.4); EOSINOPHIL % 1.7 % (0.0-4.0); HEMATOCRIT 45.8 % (39.0-51.0); HEMOGLOBIN 15.3 GM/DL (13.0-17.0); LYMPH % 24.6 % (9.0-44.0); LYMPHOCYTE # 2.2 TH/MM3 (1.0-4.8); MEAN CELL VOLUME 92.7 FL (80.0-100.0); MEAN CORPUSCULAR HGB CONC 33.5 % (32.0-36.0); MEAN PLATELET VOLUME 10.6 FL (7.0-11.0); MONO % 13.7 % (0.0-8.0); MONOCYTE # 1.2 TH/MM3 (0-0.9); NEUT % 59.4 % (16.0-70.0); PLATELET COUNT 169 TH/MM3 (150-450); RED BLOOD COUNT 4.94 MIL/MM3 (4.50-5.90); RED CELL DISTRIBUTION WIDTH 13.2 % (11.6-17.2); WHITE BLOOD COUNT 8.9 TH/MM3 (4.0-11.0)
[2017-04-24 06:22] LABS: BICARBONATE 32.3 MEQ/L (21.0-32.0); CALCIUM 8.6 MG/DL (8.5-10.1); CREATININE 0.84 MG/DL (0.60-1.30)
[2017-04-24 08:00] VITALS: BP 141/90; PULSE 73; RESP 20; TEMP 98.1; O2SAT 97
[2017-04-24] MEDS: SODIUM CHLORIDE 0.9% FLUSH 10 ML FLUSH IV FLUSH SCH (09:00)
[2017-04-24] MEDS: DOCUSATE SODIUM 50 MG/SENNA 8.6 MG TAB PO SCH (09:00)
--- NOTE | 2017-04-24 11:14 | HHI.PR ---
Subjective Remarks Follow-up sepsis/pyelonephritis/nephrolithiasis 04/23/17-patient seen and examined, continued to complain of right flank pain, emesis 04/24/17-patient seen and examined, reports improvement of right flank pain and currently afebrile.patient has been quite difficult with the staff and very rude Objective Vitals Vital Signs Date Time Temp Pulse Resp B/P (MAP) Pulse Ox O2 Delivery O2 Flow Rate FiO2 04/24/17 08:00 98.1 73 20 141/90 (107) 97 04/24/17 04:00 97.9 83 17 142/88 (106) 98 04/24/17 00:56 16 04/24/17 00:07 16 04/24/17 00:00 98.2 76 17 143/99 (114) 99 04/23/17 20:00 98.0 74 18 135/94 (108) 97 04/23/17 16:00 98.1 83 20 136/86 (103) 97 04/23/17 12:00 98.0 67 20 143/70 (94) 97 I/O 04/23/17 04/23/17 04/23/17 04/24/17 04/24/17 04/24/17 06:59 14:59 22:59 06:59 14:59 22:59 Intake Total 1000 ml 1600 ml 660 ml Balance 1000 ml 1600 ml 660 ml Intake Oral 600 ml 660 ml IV Total 1000 ml 1000 ml # Voids 2 20 25 # Bowel Movements 0 Result Diagram: 04/24/17 0506 04/24/17 0500 Imaging Last Impressions Abdomen/Pelvis CT 04/22/17 1625 Signed Impressions: Service Date/Time: April 17:11 - CONCLUSION: 1. Large right renal staghorn calculus with moderate hydronephrosis. 2. Additional calyceal calculi in lower pole right kidney. 3. 3 mm left mid pole calculus. 4. No significant abnormality. Samson Gautam MD Objective Remarks GENERAL: NAD SKIN: Warm and dry. HEAD: Normocephalic. EYES: No scleral icterus. No injection or drainage. NECK: Supple, trachea midline. No JVD or lymphadenopathy. CARDIOVASCULAR: Regular rate and rhythm without murmurs, gallops, or rubs. RESPIRATORY: Breath sounds equal bilaterally. No accessory muscle use. GASTROINTESTINAL: Abdomen soft, non-tender, nondistended. MUSCULOSKELETAL: No cyanosis, or edema. BACK: Nontender without obvious deformity. +Right sided CVA tenderness. A/P Problem List: (1) Staghorn calculus ICD Code: N20.0 - Calculus of kidney Status: Acute (2) Pyelonephritis ICD Code: N12 - Tubulo-interstitial nephritis, not specified as acute or chronic Status: Acute (3) Hydronephrosis ICD Code: N13.30 - Unspecified hydronephrosis Status: Acute (4) Sepsis ICD Code: A41.9 - Sepsis, unspecified organism Assessment and Plan 21-year-old man with Staghorn calculus with hydronephrosis Abdomen CT reviewed and shows a large right renal staghorn calculus with moderate hydronephrosis. 3mm left mid pole calculus. -Continue IVF rate 150ml/hr -Pain management with IV morphine and PO Percocet -Urology input appreciated Sepsis Pyelonephritis -Rocephin IV -Urine culture pending Hypokalemia Resolved s/p potassium 60 mEq 1 and monitor BMP DVT prophylaxis: SCDs Problem Qualifiers (1) Hydronephrosis: Qualified Codes: N13.2 - Hydronephrosis with renal and ureteral calculous obstruction Camden Guajardo MD Apr 24, 2017 11:14
[2017-04-24 12:00] VITALS: BP 119/87; PULSE 86; RESP 20; TEMP 97.8; O2SAT 99
[2017-04-24] MEDS ORDERED: BACT800T5 PO (12:02)
--- NOTE | 2017-04-24 12:05 | HHI.DS ---
Discharge Summary Admission Date Apr 22, 2017 at 23:23 Discharge Date: Apr 24, 2017 Admitting Diagnosis kidney stone, hydronephrosis, pyelonephritis (1) Staghorn calculus ICD Code: N20.0 - Calculus of kidney Status: Acute (2) Pyelonephritis ICD Code: N12 - Tubulo-interstitial nephritis, not specified as acute or chronic Status: Acute (3) Hydronephrosis ICD Code: N13.30 - Unspecified hydronephrosis Status: Acute (4) Sepsis ICD Code: A41.9 - Sepsis, unspecified organism Procedures None Brief History - From Admission 21 y/o male with a history of kidney stones presented to the ED with complaints of right flank pain. He states he woke up this morning and tried to urination and he was only able to dribble and when he tried to force it he had severe left flank pain. He states it is an intermittent, sharp, 10/10 pain, worse with palpation, but relieved with pain medication, with associated nausea. He has had kidney stones in the past at age 8 and 19 that failed lithotripsy and required ureteroscopy. He states he knows he does not drink enough fluids. He denies any chest pain, sob, fever or chills. He is currently here on vacation from [place]. CBC/BMP: 04/24/17 0506 04/24/17 0500 Significant Findings Laboratory Tests Test 04/22/17 15:50 04/22/17 16:29 04/23/17 07:20 04/23/17 12:57 Urine Turbidity CLOUDY (CLEAR) Urine Protein 100 mg/dL (NEG-TRACE) Urine Occult Blood MOD (NEG) Urine Leukocyte Esterase LARGE (NEG) Urine WBC 91 /hpf (0-5) White Blood Count 19.7 TH/MM3 (4.0-11.0) 13.9 TH/MM3 (4.0-11.0) Hemoglobin 17.3 GM/DL (13.0-17.0) Hematocrit 51.4 % (39.0-51.0) Neutrophils (%) (Auto) 88.4 % (16.0-70.0) 73.0 % (16.0-70.0) Lymphocytes (%) (Auto) 6.3 % (9.0-44.0) Neutrophils # (Auto) 17.4 TH/MM3 (1.8-7.7) 10.1 TH/MM3 (1.8-7.7) Monocytes # (Auto) 1.0 TH/MM3 (0-0.9) 1.8 TH/MM3 (0-0.9) Random Glucose 146 MG/DL (74-106) Estimat Glomerular Filtration Rate 79 ML/MIN (>89) Lipase 65 U/L (73-393) Monocytes (%) (Auto) 12.7 % (0.0-8.0) Blood Urea Nitrogen 6 MG/DL (7-18) Potassium Level 3.4 MEQ/L (3.5-5.1) Test 04/24/17 05:00 04/24/17 05:06 Random Glucose 71 MG/DL (74-106) Carbon Dioxide Level 32.3 MEQ/L (21.0-32.0) Monocytes (%) (Auto) 13.7 % (0.0-8.0) Monocytes # (Auto) 1.2 TH/MM3 (0-0.9) PE at Discharge GENERAL: NAD SKIN: Warm and dry. HEAD: Normocephalic. EYES: No scleral icterus. No injection or drainage. NECK: Supple, trachea midline. No JVD or lymphadenopathy. CARDIOVASCULAR: Regular rate and rhythm without murmurs, gallops, or rubs. RESPIRATORY: Breath sounds equal bilaterally. No accessory muscle use. GASTROINTESTINAL: Abdomen soft, non-tender, nondistended. MUSCULOSKELETAL: No cyanosis, or edema. BACK: Nontender without obvious deformity. +Right sided CVA tenderness. Hospital Course While in hospital, patient was treated for Staghorn calculus with hydronephrosis Abdomen CT reviewed and shows a large right renal staghorn calculus with moderate hydronephrosis. 3mm left mid pole calculus. -Treate IVF rate 150ml/hr -Pain management with IV morphine and PO Percocet -Urology input appreciated and patient will need to follow outpatient to make arrangements for placement of left nephrostomy tube and subsequent left percutaneous nephrolithotomy Sepsis Pyelonephritis -Treated with Rocephin IV -He will be discharged on Bactrim DS 1 tab BID 14 days Hypokalemia Resolved s/p potassium 60 mEq 1 and monitor BMP DVT prophylaxis: SCDs Pt Condition on Discharge: Good Discharge Disposition: Discharge Home Discharge Time: <= 30 minutes Discharge Instructions DIET: Follow Instructions for: As Tolerated, No Restrictions Activities you can perform: Regular-No Restrictions Follow up Referrals: PCP Follow-up - 1 Week Urology - 2 Weeks New Medications: Sulfamethoxazole-Trimethoprim (Bactrim DS) 800-160 Mg Tab 1 TAB PO BID for Infection, #28 TAB 0 Refills Oxycodone HCl/Acetaminophen (Oxycodone-Acetaminophen 5-325) 5 Mg-325 Mg Tablet 1 TAB PO Q6H PRN for PAIN SCALE 3 TO 5, #10 TAB Camden Guajardo MD Apr 24, 2017 12:05
[2017-04-24] MEDS ORDERED: OXYC1TAB63 PO (12:11)
== END 2017-04-24 13:18 | disposition home or self-care (01) | DRG 872 ==
LOC: NEPK 15:38 → NEDA 18:37 → N04A 19:30 → OBSVTOIN 23:23
PROVIDERS: ADMIT Hospitalist; ATTEND Hospitalist
DX: A41.9 Sepsis, unspecified organism (principal); N13.6 Pyonephrosis; N20.2 Calculus of kidney with calculus of ureter; Z87.442 Personal history of urinary calculi; Z72.0 Tobacco use; F12.90 Cannabis use, unspecified, uncomplicated; E87.6 Hypokalemia
CPT/HCPCS: 74176; 80048; 80053; 81001; 83605; 83690; 85025; 87086; 96361; 96365; 96375; J0696; J1885; J2270; J2405; J7030